=== PATIENT | male | born 1965 | race Caucasian/White ===

== ENCOUNTER 2020-12-27 15:19 | Emergency (ER) | payer OTHER ==
[~2020-12-27] VITALS: Ht 185.4 cm; Wt 109.0 kg
[2020-12-27] MEDS ORDERED: IBUPROFEN 600MG TABLET PO STA (16:34)
[2020-12-27 16:44] LABS: BASOPHILS % 0.2 % (0.0-2.0); EOSINOPHILS % 1.8 % (0.0-5.0); HEMATOCRIT. 41.6 % (42.0-52.0); HEMOGLOBIN. 13.1 g/dL (14.0-18.0); LYMPHOCYTES % 27.8 % (20.0-50.0); MEAN CORPUSCULAR HEMOGLOBIN 23.5 pg (28.0-32.0); MEAN CORPUSCULAR VOLUME 74.8 fL (80.0-94.0); MEAN PLATELET VOLUME 7.6 fl (7.4-10.4); MONOCYTES % 9.7 % (2.0-8.0); NEUTROPHILS % 60.5 % (40.0-76.0); PLATELET 231 x1000/uL (130-400); RED BLOOD CELL COUNT 5.56 mill/uL (4.7-6.1); RED CELL DISTRIBUTION WIDTH 17.3 % (11.6-14.6)
[2020-12-27 16:47] LABS: CHLORIDE 105 mEq/L (98-107)
[2020-12-27] MEDS ORDERED: IBUP-2029 MT (17:53)
[2020-12-27 18:02] VITALS: BP 155/94
== END 2020-12-27 18:30 | disposition home or self-care (01) ==
LOC: ER 15:19
DX: I16.0 Hypertensive urgency (principal); I10 Essential (primary) hypertension
CPT/HCPCS: 36415; 80053; 85025; 93005; 99285

== ENCOUNTER 2021-01-23 14:54 | Emergency (ER) | payer OTHER ==
[~2021-01-23] VITALS: Ht 172.7 cm; Wt 75.0 kg
[~2021-01-23 14:54] MED LIST: IBUP-2029 MT
[2021-01-23] MEDS ORDERED: MAGNESIUM/ALUMINUM HYDROXIDE/SIMETHICONE 30ML UDC PO ONE (16:30)
[2021-01-23] MEDS ORDERED: FAMO-135 MT (17:10)
[2021-01-23 17:20] VITALS: BP 138/81
== END 2021-01-23 17:21 | disposition home or self-care (01) ==
LOC: ER 14:54
DX: R68.2 Dry mouth, unspecified (principal); L29.9 Pruritus, unspecified
CPT/HCPCS: 99282

== ENCOUNTER 2023-01-06 18:53 | Emergency (ER) | payer MEDICAID, OTHER ==
[~2023-01-06] VITALS: Ht 182.9 cm; Wt 107.0 kg
[~2023-01-06 18:53] MED LIST changes: +FAMO-135 MT
[2023-01-06 19:09] VITALS: BP 169/98
[2023-01-06 21:26] LABS: BASOPHILS % 0.2 % (0.0-2.0); EOSINOPHILS % 1.1 % (0.0-5.0); HEMATOCRIT. 41.4 % (42.0-52.0); HEMOGLOBIN. 13.3 g/dL (14.0-18.0); LYMPHOCYTES % 36.9 % (20.0-50.0); MEAN CORPUSCULAR HEMOGLOBIN 23.3 pg (28.0-32.0); MEAN CORPUSCULAR VOLUME 72.4 fL (80.0-94.0); MEAN PLATELET VOLUME 7.2 fl (7.4-10.4); MONOCYTES % 9.1 % (2.0-8.0); NEUTROPHILS % 52.7 % (40.0-76.0); PLATELET 261 x1000/uL (130-400); RED BLOOD CELL COUNT 5.71 mill/uL (4.7-6.1); RED CELL DISTRIBUTION WIDTH 17.2 % (11.6-14.6)
[2023-01-06 21:31] LABS: CHLORIDE 103 mEq/L (98-107)
[2023-01-06 21:40] LABS: ETHANOL BLOOD < 10 mg/dL
[2023-01-07] MEDS ORDERED: SIME180C70 MT ×3 (01:03→01:05)
[2023-01-07] MEDS ORDERED: POLY17PO13 PO ×3 (01:03→01:05)
== END 2023-01-07 01:30 | disposition home or self-care (01) ==
LOC: ER 18:53
DX: K59.00 Constipation, unspecified (principal); I10 Essential (primary) hypertension; G47.00 Insomnia, unspecified; Z87.19 Personal history of other diseases of the digestive system
CPT/HCPCS: 36415; 74022; 76705; 80053; 80320; 85025; 99285; G0480